=== PATIENT | female | born 2005 | race Two or more races ===

== ENCOUNTER 2024-11-01 21:13 | Observation (INO) | payer MEDICAID, SELFPAY ==
[2024-11-01 21:26] VITALS: BP 140/63; PULSE 92
[2024-11-01 21:42] VITALS: BP 93/55; PULSE 90
[2024-11-01 22:00] LABS: ROM Kit Lot # 57809118; Swb Mxed in Solvent 1 min? Yes
[2024-11-01 22:01] LABS: ROM Swab Mixed By: BDR; Rupture of Fetal Membranes Negative (Negative)
[2024-11-01 22:03] VITALS: BP 109/62; PULSE 84
[2024-11-01 22:07] VITALS: BP 140/63; PULSE 97; RESP 100; RESP 18; TEMP 36.6; BMI 37.5
== END 2024-11-01 23:00 | disposition home or self-care (01) ==
PROVIDERS: Admitting Provider Specialist; Visit Provider Specialist
DX: Z34.03 Encounter for supervision of normal first pregnancy, third trimester (principal); Z3A.39 39 weeks gestation of pregnancy
CPT/HCPCS: 59025; 59899; 84112

== ENCOUNTER 2024-11-08 12:29 | Observation (INO) | payer MEDICAID, SELFPAY ==
[2024-11-08 12:36] VITALS: TEMP 36.9
[2024-11-08 12:40] VITALS: BP 113/70; PULSE 96; RESP 18; RESP 99; TEMP 36.9
[2024-11-08 12:43] VITALS: BP 113/70; PULSE 96
== END 2024-11-08 13:30 | disposition home or self-care (01) ==
PROVIDERS: Admitting Provider Specialist; Visit Provider Specialist
DX: O26.893 Other specified pregnancy related conditions, third trimester (principal); Z3A.40 40 weeks gestation of pregnancy; R25.2 Cramp and spasm
CPT/HCPCS: 59025; 59899

== ENCOUNTER 2024-11-10 01:30 | Observation (INO) | payer MEDICAID, SELFPAY ==
[2024-11-10 01:30] VITALS: BMI 37.8
[2024-11-10 01:51] VITALS: BP 117/65; PULSE 83
[2024-11-10 02:09] VITALS: BP 117/65; PULSE 83; RESP 100; RESP 18; TEMP 36.8
== END 2024-11-10 03:35 | disposition home or self-care (01) ==
PROVIDERS: Admitting Provider Specialist; Visit Provider Specialist
DX: O26.893 Other specified pregnancy related conditions, third trimester (principal); Z3A.40 40 weeks gestation of pregnancy; R10.9 Unspecified abdominal pain
CPT/HCPCS: 59025; 59899

== ENCOUNTER 2024-11-11 21:36 | Inpatient (IN) | payer MEDICAID, SELFPAY ==
--- NOTE | 2024-11-10 12:23 | ESHP_ITS ---
RE: EMILY NEWMAN : 2005 DATE OF ADMISSION: 11/11/2024 HISTORY OF PRESENT ILLNESS: This is a 19-year-old 1, para 0 with a due date of 11/05/2024 with intrauterine at 41 weeks on 11/12, who presents with ctx in labor. The patient denies any leaking or bleeding. She reports normal movement. She reports regular contractions. Her care was complicated by reoccurring E. coli urinary tract infections throughout her and iron deficiency anemia. ALLERGIES: NO KNOWN DRUG ALLERGIES. MEDICATIONS: 1. multivitamin 1 p.o. daily. 2. Ferrous sulfate 325 mg 1 p.o. daily. PAST MEDICAL HISTORY: E. coli urinary tract infection and iron deficiency anemia. FAMILY HISTORY: Denies. PAST SURGICAL HISTORY: Denies. REVIEW OF SYSTEMS: She denies any chest pain, palpitations, cough, fever, shortness of breath, or lower extremity pain. PHYSICAL EXAMINATION: VITAL SIGNS: Blood pressure is 121/65, heart rate 88, respirations 18, temperature 98.2, weight 206 pounds. HEENT: Oropharynx and sclerae are clear. LUNGS: Clear to auscultation bilaterally. HEART: Regular rate and rhythm. ABDOMEN: Gravid. Estimated weight 7.5 pounds. PELVIC: See RN notes. EXTREMITIES: Nontender. SKIN: No gross rashes or lesion. NEUROLOGIC: No focal deficit. ASSESSMENT AND PLAN: Intrauterine at 40w6d. Early labor anticipate spontaneous vaginal delivery. Informed consent was obtained. The patient was made aware of the risks, complications, alternatives, and benefits of operative vaginal delivery and delivery and agrees with these modes of delivery if indicated. DT: 14:51:53 TT: 15:54:00 Ref: [id number] - TID: [id number] MTDD
[2024-11-11] VITALS (16 sets, daily range): BP systolic 116–126; BP diastolic 74–76; PULSE 89–110; RESP 16–99; TEMP 36.7–37; O2SAT 91–100; BMI 37.8
[2024-11-11] MEDS: RINGERS LACTATED 1000 ML 1,000 ML 100 ML IV (23:24)
[2024-11-11 23:26] LABS: Amphetamine/Metham Scrn,Ur OB Negative (Negative); Benzoylecgonine Screen, Ur OB Negative (Negative); Opiate Screen,Urine OB Negative (Negative); THC Screen,Urine OB Negative (Negative)
[2024-11-11 23:49] LABS: Basophils % (Auto) 0 % (0-2.5); Eosinophils # (Auto) 0.1 Thou/mm3 (0.0-0.5); Eosinophils % (Auto) 1 % (0-10); Hematocrit 33.5 % (36.0-46.0); Hemoglobin 10.8 g/dL (12.0-16.0); Immature Granulocytes % (Auto) 1 % (0-0); Immature Granulocytes Auto 0.07 Thou/mm3 (0.00-0.00); Lymphocytes # (Auto) 2.8 Thou/mm3 (1.0-4.8); Lymphocytes % (Auto) 28 % (10-50); Mean Corpuscular HGB Conc 32.2 g/dl (31.0-37.0); Mean Corpuscular Hemoglobin 26.6 pg (25.0-35.0); Mean Corpuscular Volume 83 fL (80-100); Monocytes % (Auto) 10 % (0-12); Neutrophils # (Auto) 6.1 Thou/mm3 (1.8-7.7); Neutrophils % (Auto) 60 % (37-80); Nucleated Red Blood Cell % 0 /100 WBC (0); Platelet Count 211 Thou/mm3 (140-440); RDW Standard Deviation 46.4 fL (36.4-46.3); Red Blood Count 4.06 Miln/mm3 (4.00-5.20)
[2024-11-12] VITALS (273 sets, daily range): BP systolic 103–171; BP diastolic 55–96; PULSE 83–137; RESP 16–97; TEMP 36.6–37.1; O2SAT 90–100
[2024-11-12 00:05] LABS: Syphilis Nonreactive (Nonreactive)
[2024-11-12] MEDS: RINGERS LACTATED 1000 ML 1,000 ML 100 ML IV ×3 (00:40→10:53)
--- NOTE | 2024-11-12 03:49 | PD.LDPN ---
Documentation for date of: 11/12/24 OB Labor Progress Note Pain Control Comments: Epidural Pelvic Exam Dilation (cm): 6 Effacement (%): 80 station: 0 Amniotic membrane status: Ruptured Comments: Thin meconium Contractions Contraction frequency: q 3 min Status status: Category l Assessment and Plan Comments: Anticipate
[2024-11-12] MEDS: AMPICILLIN/SULBAC INJ 3 GM in SODIUM CHLORIDE 0.9% (POP) 100 ML IV ×2 (13:08→18:33)
[2024-11-12] MEDS: OXYTOCIN in NS 20 units 20 UNIT/1,000 ML BAG 125 UNIT IV (13:15)
[2024-11-12] MEDS: BENZO/LANO/ALOE (Dermoplast) 60 GM CAN 1 SPRAY TOP (13:30)
[2024-11-12 13:52] LABS: Lactate (Lactic Acid) 3.3 mMol/L (0.4-2.0)
[2024-11-12 13:58] LABS: Basophils % (Auto) 0 % (0-2.5); Eosinophils % (Auto) 0 % (0-10); Hematocrit 32.3 % (36.0-46.0); Hemoglobin 10.5 g/dL (12.0-16.0); Immature Granulocytes % (Auto) 1 % (0-0); Immature Granulocytes Auto 0.08 Thou/mm3 (0.00-0.00); Lymphocytes # (Auto) 1.6 Thou/mm3 (1.0-4.8); Lymphocytes % (Auto) 12 % (10-50); Mean Corpuscular HGB Conc 32.5 g/dl (31.0-37.0); Mean Corpuscular Hemoglobin 26.4 pg (25.0-35.0); Mean Corpuscular Volume 81 fL (80-100); Monocytes # (Auto) 0.9 Thou/mm3 (0.0-0.8); Monocytes % (Auto) 7 % (0-12); Neutrophils # (Auto) 11.3 Thou/mm3 (1.8-7.7); Neutrophils % (Auto) 81 % (37-80); Nucleated Red Blood Cell % 0 /100 WBC (0); Platelet Count 189 Thou/mm3 (140-440); RDW Standard Deviation 44.7 fL (36.4-46.3); Red Blood Count 3.97 Miln/mm3 (4.00-5.20); White Blood Count 13.9 Thou/mm3 (4.5-11.0)
--- NOTE | 2024-11-12 13:58 | PD.LDDELS ---
Shoulder Dystocia General Time head delivered:: 13:12 Traction performed:: none at any time Maneuvers/Procedures Kayley: Order Maneuver Performed:: 1 Time begun:: 13:12 Time ended:: 13:13 Performed by:: Kaleb RNs suprapubic pressure: Order Maneuver Performed:: 2 Time begun:: 13:12 Time ended:: 13:13 Performed by:: Alicia SHETH. Was fundal Pressure applied? Fundal pressure applied:: No Shoulder Under Symphisis at head delivery:: right Immediate [place] Assessment Immediate assessment:: no apparent injury Surgical Team Notified Surgical team notified:: Yes Data ([facility]oy) Data Hx Section: No : 1 Para: 0 Term: 0 : 0 : 0 Delivery Data ([facility]) Labor Data ROM Date: 11/12/24 ROM Time: 03:50 Rupture Type: AROM Delivery Data EDC: 11/05/24 EDC calculated by:: LMP/early US confirmation Labor Onset Stage 1 Date: 11/12/24 Labor Onset Stage 1 Time: 01:31 Labor Onset Stage 2 Date: 11/12/24 Labor Onset Stage 2 Time: 03:50 Delivery Date: 11/12/24 Delivery Time: 13:13 Gestational age (weeks): 41 Placenta Delivery Date: 11/12/24 Placenta Delivery Time: 13:18 Delivered by: Kun Irvin Delivery nurse: Rachel Hernandez Other staff at delivery: Nursery Nurse Other staff at delivery: Rocío Briseno Delivery Method Delivery: Vaginal Delivery Type: Spontaneous Presentation: Vertex Position: OA Anesthesia Type Primary Anesthesia: Epidural Delivery Room Medications Intrapartum Medications: Antibiotics Placenta Placenta Delivery: Spontaneous Placenta Cultures Obtained: No Placenta Sent for Examination: No Cord Sample: Cord Blood Obtained Lacerations #1: Perineal: 2nd degree EBL Estimated blood loss (ml): 250 Umbilical Cord Nuchal Cord: None Body Cord: None Complications Complications: Shoulder Dystocia [place] Data ([facility]) [place] Data Infant Gender: Male Infant Weight Grams: 4130 1 Minute Total: 9 5 Minute Total: 9
--- NOTE | 2024-11-12 14:02 | ESDS_ITS ---
DS: Providers Provider Date of admission: 11/11/24 22:25 Primary care physician: Physician No Primary/Family Admitting Provider: Kun Irvin MD Attending Provider on Admission: Kun Irvin MD Attending Provider on DC: Kun Irvin MD Discharging Provider: Kun Irvin MD DS: Diagnosis Problem List Completed Was Problem List Reviewed/Reconciled?: Yes Summary/Hosp Course Time Spent with Patient Time attestation: Total time spent providing and/or coordinating discharge services: Exam Vital Signs Temp Pulse Resp BP Pulse Ox 98.3 F 109 H 18 130/70 98 11/12/24 12:54 11/12/24 13:53 11/12/24 12:54 11/12/24 13:53 11/12/24 14:01 Discharge Plan Plan Patient Disposition: HOME (Self Care) Patient condition on transfer: Stable Prescriptions/Referrals Prescriptions/Med Rec: New ibuprofen 600 mg tablet 600 mg PO Q6H PRN (Reason: pain) Qty: 30 0RF amoxicillin-pot clavulanate 875-125 mg tablet 1 tab PO Q12H Qty: 10 0RF Continued ferrous sulfate 325 mg (65 mg iron) tablet 325 mg PO QDAY Patient Comments: TAKE 1 TABLET BY MOUTH EVERY DAY PNV cmb#95-ferrous fumarate-FA [] 28 mg iron- 800 mcg tablet 1 tab PO QDAY Patient Comments: TAKE 1 TABLET BY MOUTH EVERY DAY Referrals: No Primary/Family,Physician [Primary Care Provider] - Patient/Caregiver Discharge Instructions Discharge Activity: activity as tolerated Other Discharge Activity Instructions:: Follow up office 6 weeks. Education Materials: After a Vaginal , Breast Care After , Incision Care After Vaginal , Nutrition While Print Language: Mohawk Stand Alone Forms: Adrienne Award Info., Patient Portal Info Letter Discharge Order Discharge Orders: Discharge (Routine); Ordered 11/14/24 Ordered By: Kun Irvin Planned Discharge Date 11/14/24
[2024-11-12 14:16] LABS: Partial Thromboplastin Time 25.3 Seconds (22.0-36.0); Prothrombin Time 10.7 Seconds (9.0-12.2)
[2024-11-12 14:27] LABS: Alanine Aminotransferase < 7 U/L (10-49); Albumin, Serum 3.4 gm/dL (3.5-5.0); Albumin/Globulin Ratio 1.4 (1.2-2.2); Alkaline Phosphatase 177 U/L (46-116); Anion Gap 17 (7-16); Aspartate Amino Transferase 13 U/L (0-34); BUN/Creatinine Ratio 10 Ratio (12-20); Bilirubin,Total 0.7 mg/dL (0.3-1.2); Blood Urea Nitrogen 7 mg/dL (9-23); Calcium 8.7 mg/dL (8.3-10.6); Calcium (Corrected) 9.2 mg/dL (8.5-10.1); Carbon Dioxide 16.3 mMol/L (20.0-31.0); Chloride 105 mMol/L (98-107); Creatinine (Component) 0.7 mg/dL (0.6-1.3); Estimated Creatinine Clearance 136.8 mL/min (>60); Globulin 2.4 gm/dL (2.3-3.5); Glucose 101 mg/dL (74-106); Osmolality,Calculated 273 (275-295); Potassium 3.8 mMol/L (3.4-5.1); Procalcitonin 0.12 ng/ml (0.0-0.49); Sodium 138 mMol/L (136-145); Total Protein 5.8 gm/dL (5.7-8.2); eGFR > 60 See Note
[2024-11-12 16:46] LABS: Reflex Lactate? Y
[2024-11-12 17:06] LABS: Lactic Acid, 3 HR 1.1 mMol/L (0.4-2.0)
[2024-11-12 21:46] LABS: Basophils % (Auto) 0 % (0-2.5); Eosinophils % (Auto) 0 % (0-10); Hematocrit 29.8 % (36.0-46.0); Hemoglobin 9.9 g/dL (12.0-16.0); Immature Granulocytes % (Auto) 1 % (0-0); Immature Granulocytes Auto 0.08 Thou/mm3 (0.00-0.00); Lymphocytes # (Auto) 2.1 Thou/mm3 (1.0-4.8); Lymphocytes % (Auto) 13 % (10-50); Mean Corpuscular HGB Conc 33.2 g/dl (31.0-37.0); Mean Corpuscular Hemoglobin 26.9 pg (25.0-35.0); Mean Corpuscular Volume 81 fL (80-100); Monocytes # (Auto) 1.2 Thou/mm3 (0.0-0.8); Monocytes % (Auto) 8 % (0-12); Neutrophils # (Auto) 12.4 Thou/mm3 (1.8-7.7); Neutrophils % (Auto) 78 % (37-80); Nucleated Red Blood Cell % 0 /100 WBC (0); Platelet Count 172 Thou/mm3 (140-440); RDW Standard Deviation 44.8 fL (36.4-46.3); Red Blood Count 3.68 Miln/mm3 (4.00-5.20); White Blood Count 15.8 Thou/mm3 (4.5-11.0)
[2024-11-13 00:40] VITALS: BP 108/72; PULSE 108; RESP 18; TEMP 37; O2SAT 97
[2024-11-13] MEDS: AMPICILLIN/SULBAC INJ 3 GM in SODIUM CHLORIDE 0.9% (POP) 100 ML IV ×4 (01:25→17:19)
[2024-11-13 04:15] VITALS: BP 105/70; PULSE 94; RESP 18; TEMP 36.7; O2SAT 97
[2024-11-13] MEDS: IBUPROFEN TAB 400 MG TABLET 800 MG PO (04:57)
--- NOTE | 2024-11-13 06:20 | PC.NURSE ---
@0839 Dr. Irvin @ bedside. Per OB, pt will stay one more day and to continue antibiotic tx until discharge
--- NOTE | 2024-11-13 06:48 | ESPR_ITS ---
RE: EMILY NEWMAN : 2005 DATE OF SERVICE: 11/13/2024 day #1, the patient denies any problem or complaint. She is voiding. She is ambulating. She is tolerating diet. She is passing flatus. She denies any excessive vaginal bleeding. She denies any dizziness or lightheadedness. She denies any chest pain, palpitations, shortness of breath or lower extremity pain. OBJECTIVE: Vital Signs: Blood pressure 105/70, heart rate 94, respirations 18, temperature is 98.1, pulse ox is 97% on room air. Lungs: Clear to auscultation bilaterally. Heart: Regular rate and rhythm. Abdomen: Fundus is firm, nontender. Extremities: Nontender. Hemoglobin pre-delivery is 10.5, post delivery is 9.9. ASSESSMENT: day #1 status post spontaneous vaginal delivery, complicated by shoulder dystocia. Endometritis. PLAN: Continue Unasyn. Possible discharge home tomorrow. customer consultant. DT: 06:32:57 TT: 06:47:00 Ref: [id number] - TID: [id number]
[2024-11-13 08:00] VITALS: BP 105/71; PULSE 88; RESP 18; TEMP 36.8; O2SAT 97
[2024-11-13 12:00] VITALS: BP 113/72; PULSE 94; RESP 18; TEMP 36.7; O2SAT 98
--- NOTE | 2024-11-13 15:58 | PC.SS ---
SS received referral due to patient being late to care, no additional concerns provided by MERYL Gutierrez. SS met with patient at bedside, role and purpose of today's contact was explained to patient and father of baby (FOB) Andre Pollack. Patient verbally consented to allow FOB to be present in the room for assessment. Patient explained she was late to care due being placed on a waiting list to see Dr. Adler. Patient stated she was originally seeing a provider at [facility] and discovered she was . Patient further explained she had been admitted to the ED and was provided with Dr. Irvin's information. Patient identified FOB Andre Pollack as her alternate decision maker. She reported living with her mother and FOB. She confirmed her mother and FOB are her support system. Patient reported she will be combo feeding . Patient declined having history of mental health. She also denied having involvement with CWS and also declined having history of DV. 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. Patient reported her follow up appointment with Dr. Irvin is pending. Patient stated she has an infant carseat for discharge, FOB will be transporting at the time of discharge. Patient also stated she and FOB are prepared to receive at home with diapers, clothing, blankets, and wipes. Patient declined resources and was encouraged to contact SS if any needs arise before discharge.
[2024-11-13 16:00] VITALS: BP 107/67; PULSE 89; RESP 18; TEMP 36.8; O2SAT 98
[2024-11-13 19:33] VITALS: BP 121/82; PULSE 86; RESP 19; TEMP 37; O2SAT 98
[2024-11-14] MEDS: AMPICILLIN/SULBAC INJ 3 GM in SODIUM CHLORIDE 0.9% (POP) 100 ML IV ×2 (00:02→06:05)
[2024-11-14 04:17] VITALS: BP 118/75; PULSE 90; RESP 18; TEMP 36.7; O2SAT 97
[2024-11-14 07:07] LABS: Basophils % (Auto) 0 % (0-2.5); Eosinophils # (Auto) 0.2 Thou/mm3 (0.0-0.5); Eosinophils % (Auto) 2 % (0-10); Hematocrit 30.2 % (36.0-46.0); Hemoglobin 9.6 g/dL (12.0-16.0); Immature Granulocytes % (Auto) 1 % (0-0); Immature Granulocytes Auto 0.07 Thou/mm3 (0.00-0.00); Lymphocytes # (Auto) 2.8 Thou/mm3 (1.0-4.8); Lymphocytes % (Auto) 22 % (10-50); Mean Corpuscular HGB Conc 31.8 g/dl (31.0-37.0); Mean Corpuscular Hemoglobin 26.4 pg (25.0-35.0); Mean Corpuscular Volume 83 fL (80-100); Monocytes # (Auto) 1.1 Thou/mm3 (0.0-0.8); Monocytes % (Auto) 9 % (0-12); Neutrophils # (Auto) 8.4 Thou/mm3 (1.8-7.7); Neutrophils % (Auto) 67 % (37-80); Nucleated Red Blood Cell % 0 /100 WBC (0); Platelet Count 203 Thou/mm3 (140-440); RDW Standard Deviation 47.5 fL (36.4-46.3); Red Blood Count 3.63 Miln/mm3 (4.00-5.20); White Blood Count 12.7 Thou/mm3 (4.5-11.0)
[2024-11-14 08:00] VITALS: BP 115/66; PULSE 85; RESP 17; TEMP 36.8; O2SAT 98
--- NOTE | 2024-11-14 08:00 | ESPR_ITS ---
RE: EMILY NEWMAN : 2005 DATE OF SERVICE: 11/14/2024 SUBJECTIVE: day #2. The patient denies any problem or complaints. She is voiding. She is ambulating. She is tolerating diet. She is passing flatus. She denies any excessive vaginal bleeding. She denies any dizziness or lightheadedness. She denies any chest pain, palpitations, shortness of breath, or lower extremity pain. She remains afebrile for over 24 hours and her tachycardia has resolved. OBJECTIVE: Vital Signs: Blood pressure 118/75, heart rate 90, respirations 18, temperature 98.0, pulse oximetry 97% on room air. Lungs: Clear to auscultation bilaterally. Heart: Regular rate and rhythm. Abdomen: Fundus is firm, nontender. Extremities: Nontender. LABORATORY DATA: Hemoglobin is 9.6. White blood cell count is coming down to 12.7. ASSESSMENT: 1. day #2. 2. Status post spontaneous vaginal delivery, endometritis. PLAN: Discharge home with antibiotics for the next 5 days. Follow up in the office in 6 weeks. Discharge instructions given. DT: 07:30:50 TT: 08:00:00 Ref: [id number] - TID: [id number]
== END 2024-11-14 09:38 | disposition home or self-care (01) | DRG 560 ==
LOC: S4SX 11-12 13:54 → S4NX 11-12 16:19
PROVIDERS: Admitting Provider Specialist; Visit Provider Specialist
DX: O48.0 Post-term pregnancy (principal); O77.0 Labor and delivery complicated by meconium in amniotic fluid; O99.02 Anemia complicating childbirth; Z37.0 Single live birth; D50.9 Iron deficiency anemia, unspecified; Z3A.40 40 weeks gestation of pregnancy; O75.3 Other infection during labor; O66.0 Obstructed labor due to shoulder dystocia; O70.1 Second degree perineal laceration during delivery; Z87.440 Personal history of urinary (tract) infections; N71.9 Inflammatory disease of uterus, unspecified
CPT/HCPCS: 36415; 59409; 80053; 80307; 83605; 84145; 85025; 85610; 85730; 86780; 86850; 86900; 86901; 87040; 94762; J0295; J2590; J2795; J3010; J7120; A9270

== ENCOUNTER 2024-12-08 01:06 | Emergency (ER) | payer MEDICAID, SELFPAY ==
[2024-12-08 01:08] VITALS: BMI 33.6
[2024-12-08 01:14] VITALS: BP 141/85; PULSE 84; RESP 17; TEMP 36.6; O2SAT 98
--- NOTE | 2024-12-08 01:26 | XR_ITS ---
Examination: Abdomen sonogram, Limited Date and time of exam: December 08, 2024 0248 hrs. Indications: Epigastric pain beginning 5 hours ago Technique: Real-time darling scale transabdominal sonographic images of the upper abdomen obtained. Findings: Multiple small gallstones Gallbladder wall 0.3 cm no edema Common bile duct 0.4 cm Pancreatic head 2.8 cm Liver 16.4 cm smooth contour no focal liver lesions Normal hepatopedal portal venous flow Patent IVC Impression: Cholelithiasis, negative for cholecystitis
--- NOTE | 2024-12-08 01:31 | PD.EDABDPN ---
ED Abdominal Pain RME/HPI General Chief Complaint: Abdominal Pain Stated complaint: UPPER ABD PRESSURE AND SOB Time seen by provider: 12/08/24 01:26 Arrival date/time: 12/08/24 01:06 19F with history of recent vaginal delivery presents to ED with epigastric/RUQ muscle spasms/pressure that is causing some SOB. Patient denies leg swelling and URI symptoms. Patient states it feels similar to a contraction, but higher up. Patient states vaginal bleeding has improved since giving . Patient denies HUGO, paresthesia, and blurry vision. Limitations: no limitations Related Data Home Medications ?Medication ?Instructions ?Recorded ?Confirmed ferrous sulfate 325 mg (65 mg 325 mg PO QDAY 11/01/24 11/12/24 iron) tablet vit no.95-ferrous 1 tab PO QDAY 11/01/24 11/12/24 fumarate 28 mg-folic acid 800 mcg tablet () Previous Rx's ?Medication ?Instructions ?Recorded ibuprofen 600 mg tablet 600 mg PO Q6H PRN pain #30 tabs 11/12/24 amoxicillin 875 mg-potassium 1 tab PO Q12H #10 tabs 11/14/24 clavulanate 125 mg tablet cyclobenzaprine 5 mg tablet 5 mg PO BID PRN muscle spasm #10 12/08/24 tabs Allergies Allergy/AdvReac Type Severity Reaction Status Date / Time No Known Allergies Allergy Verified 12/08/24 01:07 Review of Systems Review of Systems Systems Reviewed: All systems reviewed, normal except as documented Constitutional Constitutional: Reports system reviewed and no additional complaints, except as documented, Denies fever(s) and Denies headache(s) ENT Ears, Nose, Mouth, and Throat: Denies disequilibrium and Denies headache(s) Cardiovascular Cardiovascular: Reports system reviewed and no additional complaints, except as documented, Denies chest pain and Denies dyspnea Respiratory Respiratory: Reports system reviewed and no additional complaints, except as documented, Reports as per HPI, Reports cough and Denies dyspnea Gastrointestinal Gastrointestinal: Reports system reviewed and no additional complaints, except as documented, Denies abdominal pain, Denies nausea and Denies vomiting Musculoskeletal Musculoskeletal: Reports as per HPI and Reports muscle cramps (spasms) Neurologic Neurologic: Reports system reviewed and no additional complaints, except as documented, Denies confusion, Denies disequilibrium and Denies headache(s) Psychiatric Psychiatric: Denies confusion Past Medical History Past Medical History NEUROLOGIC: Negative Neurological Disorders CARDIAC: Negative Cardiac Disorders or Congestive Heart Failure RESPIRATORY: Negative Chronic Obstructive Pulmonary Disease (COPD) GASTROINTESTINAL: Negative Gastrointestinal Disorders, Hepatitis or Colorectal Cancer GENITOURINARY: Negative Genitourinary Disorders, Renal Disease or Prostate Cancer REPRODUCTIVE: Negative Breast Cancer, Endometriosis, Pelvic Inflammatory Disease, Previous Pregnancies, Testicular Cancer or Uterine Prolapse MUSCULOSKELETAL: Negative Musculoskeletal Disorders, Bone Cancer or Carpal Tunnel Syndrome ENT: Negative Cataracts ENDOCRINE: Negative Endocrine Disorders, Diabetes Mellitus Type 1 or Diabetes Mellitus Type 2 HEMATOLOGIC: Negative Blood Disorders OTHER HISTORY: Negative Hospitalization, Autoimmune Disease, Down Syndrome, Developmental Delay, Shingles, Falls, Blood Transfusions, Blood Transfusion Reaction, Anesthesia Reactions, Organ Transplant, Chemotherapy, Radiation Therapy, Hyperbaric Therapy, MRSA, VRSA, Vancomycin-Resistant Enterococci, Human Immunodeficiency Virus (HIV), Chicken Pox, Measles, Mumps, Rubella (Kiswahili Measles), Pertussis, Clostridium Difficile, Cancer, Breast Cancer, Cervical Cancer, Colorectal Cancer, Lung Cancer, Ovarian Cancer, Prostate Cancer or Testicular Cancer Family History FAMILY HISTORY: Negative Family Psychiatric Problems, Family Respiratory Disorders, Family Cardiac Disorders, Family Gastrointestinal Problems, Family Cancer, Family Surgery or Family Anesthesia Reaction (salvia glands swollen surgery) Surgical History SURGICAL: Negative Cardiac Surgery, Open Heart Surgery, Coronary Artery Bypass Graft, Valve Replacement, Vascular Surgery, Coronary Stent, Cardiac Catheterization, Pacemaker, Angiogram, Auto Implanted Cardiovert Defib, Carotid Endarterectomy, Endocrine Surgery, Thyroidectomy, Ear Surgery, Tympanostomy Tube, Eye Surgery, Nose Surgery, Oral Surgery, Tonsillectomy, Adenoidectomy, Cochlear Implant, Corneal Transplant, Throat Surgery, Abdominal Surgery, Tracheostomy, Gastric Bypass Surgery, Gastrostomy, Bowel Surgery, Nephrectomy, Transurethral Resection, Joint Replacement, Amputation, Open Reduction Internal Fixation, Arthroscopy, Neurologic Surgery, Brain Shunt, Mastectomy, Lumpectomy, Hysterectomy, Tubal Ligation, Section, Vasectomy or Organ Transplant Social History SMOKING STATUS: Never smoker SECOND HAND EXPOSURE: No ED Exam General Limitations: Present no limitations General appearance: Present alert and in no apparent distress Head Head exam: Present atraumatic Eye Eye exam: Present normal appearance, PERRL and EOMI ENT ENT exam: Present normal exam, normal oropharynx and mucous membranes moist Neck Neck exam: Present normal inspection, full ROM and trachea midline Chest Chest inspection: Present normal inspection and symmetric chest wall rise Respiratory Respiratory exam: Present normal lung sounds bilaterally Cardiovascular Cardiovascular exam: Present regular rate, normal rhythm and normal heart sounds Abdominal Exam Abdominal exam: Present soft and normal bowel sounds Abdominal tenderness: Present epigastrium and mild Extremities Exam Extremities exam: Present normal inspection and full ROM Back Exam Back exam: Present normal inspection and full ROM Neurological Exam Neurological exam: Present alert, oriented X3 and CN II-XII intact Psychiatric Psychiatric exam: Present normal affect and normal mood Skin Skin exam: Present warm, dry, intact and normal color Course Quality Measures none Orders Category Date Time Status US gall bladder Stat Exams 12/08/24 01:26 Taken CBC Stat Lab 12/08/24 01:48 Completed CMP [Comprehensive Metabolic Panel] Stat Lab 12/08/24 01:48 Completed Lipase Stat Lab 12/08/24 01:48 Completed CYCLObenzaPRINE [Flexeril] Med 12/08/24 01:30 Discontinued 5 mg PO X1 ONE Vital Signs Vital signs: Vital Signs Temperature 98 F 12/08/24 01:14 Pulse Rate 84 12/08/24 01:14 Respiratory Rate 17 12/08/24 01:14 Blood Pressure 141/85 H 12/08/24 01:14 Pulse Oximetry (%) 98 12/08/24 01:14 Oxygen Delivery Method Nasal Cannula 12/08/24 01:14 O2 at 98% on RA; NC is a clinical staff error Abdominal Pain MDM MDM Narrative MDM Narrative:: 19F with history of recent vaginal delivery presents to ED with epigastric/RUQ muscle spasms/pressure that is causing some SOB. Patient denies leg swelling and URI symptoms. Patient states it feels similar to a contraction, but higher up. Patient states vaginal bleeding has improved since giving . Patient denies HUGO, paresthesia, and blurry vision. Physical exam reveals mild epigastric tenderness. Patient is afebrile, calm, and alert. US unremarkable. Minimal leukocytosis. CMP unremarkable. Lipase normal. Muscle relaxer relieved symptoms. Patient data External records reviewed:: [facility] previous records Clinical information provided by:: patient Social determinants that could affect healthcare access:: none Patient has the following chronic illnesses:: none How is presenting disease/condition affected by chronic disease/condition?: no chronic disease Evaluation data The following diagnostics were reviewed and interpreted by me:: lab results and radiology exam(s) Lab and/or radiology exams considered but not ordered:: ordered Interpretation Summary: above Medications / Prescriptions Medications or Prescriptions considered but not ordered:: ordered Medication administrations:: Medication Administration History Discontinued Medications Cyclobenzaprine HCl (Cyclobenzaprine 5 Mg Tablet) 5 mg PO X1 ONE Stop: 12/08/24 01:31 Last Admin: 12/08/24 01:52 Dose: 5 mg Documented By: GENEVA above Consultations Consultation(s) initiated? (list below): No Diagnosis Differential diagnosis abdominal pain: abdominal pain, acute appendicitis, calculus of kidney, constipation, diverticulitis, endometriosis, gastroenteritis, pancreatitis, small bowel obstruction and other (muscle spasms, biliary disease, pre-eclampsia, ab cramps ) Most likely diagnosis given after review of the tests above:: ab cramps Admission Indicated Admission indicated?: not indicated Admission Request Was there a request for admission?: No Disposition Plan Disposition Plan: Discharge Discharge Attestation Discharge Attestation: The patient and all family members were given an opportunity to ask questions and understood the discharge instructions. Discharge instructions specifically effects, indications for sooner follow up or return to the emergency department, and the expected course of current diagnosis. Patient condition: Stable Discharge Plan Plan Patient Disposition: HOME (Self Care) Disposition Comment: Stable Prescriptions/Referrals Prescriptions/Med Rec: New cyclobenzaprine 5 mg tablet 5 mg PO BID PRN (Reason: muscle spasm) Qty: 10 0RF No Action ibuprofen 600 mg tablet 600 mg PO Q6H PRN (Reason: pain) Qty: 30 0RF amoxicillin-pot clavulanate 875-125 mg tablet 1 tab PO Q12H Qty: 10 0RF ferrous sulfate 325 mg (65 mg iron) tablet 325 mg PO QDAY Patient Comments: TAKE 1 TABLET BY MOUTH EVERY DAY PNV cmb#95-ferrous fumarate-FA [] 28 mg iron- 800 mcg tablet 1 tab PO QDAY Patient Comments: TAKE 1 TABLET BY MOUTH EVERY DAY Problem List Clinical Impression: Abdominal cramping Patient/Caregiver Discharge Instructions Education Materials: Abdominal Pain Additional Instructions: Please follow-up with PCP/OBGYN within 24-48 hours and return immediately if symptoms worsen. Print Language: Azerbaijani Stand Alone Forms: Patient Portal Info Letter ELEAZAR/CASIE Supervising Physician ELEAZAR/CASIE Supervising Physician: Dr. Dela Cruz
[2024-12-08] MEDS: CYCLObenzaPRINE 5 MG TABLET PO (01:52)
[2024-12-08 02:05] LABS: Basophils % (Auto) 0 % (0-2.5); Eosinophils # (Auto) 0.2 Thou/mm3 (0.0-0.5); Eosinophils % (Auto) 2 % (0-10); Hematocrit 38.9 % (36.0-46.0); Hemoglobin 12.7 g/dL (12.0-16.0); Immature Granulocytes % (Auto) 0 % (0-0); Immature Granulocytes Auto 0.03 Thou/mm3 (0.00-0.00); Lymphocytes # (Auto) 2.9 Thou/mm3 (1.0-4.8); Lymphocytes % (Auto) 25 % (10-50); Mean Corpuscular HGB Conc 32.6 g/dl (31.0-37.0); Mean Corpuscular Hemoglobin 26.5 pg (25.0-35.0); Mean Corpuscular Volume 81 fL (80-100); Monocytes # (Auto) 0.5 Thou/mm3 (0.0-0.8); Monocytes % (Auto) 4 % (0-12); Neutrophils # (Auto) 7.6 Thou/mm3 (1.8-7.7); Neutrophils % (Auto) 68 % (37-80); Nucleated Red Blood Cell % 0 /100 WBC (0); Platelet Count 287 Thou/mm3 (140-440); RDW Standard Deviation 46.4 fL (36.4-46.3); White Blood Count 11.3 Thou/mm3 (4.5-11.0)
[2024-12-08 02:23] LABS: Alanine Aminotransferase 24 U/L (10-49); Albumin, Serum 4.4 gm/dL (3.5-5.0); Albumin/Globulin Ratio 1.6 (1.2-2.2); Alkaline Phosphatase 103 U/L (46-116); Anion Gap 7 (7-16); Aspartate Amino Transferase 26 U/L (0-34); BUN/Creatinine Ratio 14 Ratio (12-20); Bilirubin,Total 0.4 mg/dL (0.3-1.2); Blood Urea Nitrogen 13 mg/dL (9-23); Calcium 9.5 mg/dL (8.3-10.6); Calcium (Corrected) 9.5 mg/dL (8.5-10.1); Carbon Dioxide 28.3 mMol/L (20.0-31.0); Chloride 105 mMol/L (98-107); Creatinine (Component) 0.9 mg/dL (0.6-1.3); Estimated Creatinine Clearance 99.9 mL/min (>60); Globulin 2.8 gm/dL (2.3-3.5); Glucose 125 mg/dL (74-106); Lipase 33 U/L (12-53); Osmolality,Calculated 280 (275-295); Sodium 140 mMol/L (136-145); Total Protein 7.2 gm/dL (5.7-8.2); eGFR > 60 See Note
[2024-12-08 03:14] VITALS: BP 110/76; PULSE 84; RESP 18; TEMP 36.7; O2SAT 98
--- NOTE | 2024-12-08 04:07 | PRELIM_ITS ---
Right upper quadrant abdominal ultrasound with Doppler and wave Doppler spectral analysis. December 08, 2024 at 0248 hours Clinical history: Pain. Technique: Grayscale and color flow images of the right upper quadrant are provided. Hepatic and portal veins were also imaged with color flow images. Comparison: No prior study is available for comparison. Findings: The liver demonstrates heterogenous increased echogenicity. No intrahepatic biliary ductal dilatation. No gallbladder calculus, wall thickening or pericholecystic fluid is demonstrated. The common bile duct is normal in caliber at 4.0 mm. The pancreas is unremarkable to the extent visualized. The imaged portions of the right kidney are within normal limits. The portal vein is patent with hepatopetal flow with normal wave Doppler spectral analysis. Impression: Heterogenous liver, consider further evaluation to exclude cirrhosis. Liver steatosis. Report Electronically Signed By: Bertrand Yi 12/08/2024 4:05:56 AM [EST]
[2024-12-08 04:09] VITALS: BP 113/76; PULSE 73; RESP 19; TEMP 36.9; O2SAT 99
== END 2024-12-08 04:16 | disposition home or self-care (01) ==
LOC: SERX 04:12
PROVIDERS: Physician Assistant; Emergency Provider Emergency Medicine; PCP Family Medicine
DX: R10.9 Unspecified abdominal pain (principal)
CPT/HCPCS: 36415; 76705; 80053; 83690; 85025; 99284; A9270